=== PATIENT | female | born 1975 | race Caucasian/White ===

== ENCOUNTER 2021-10-23 01:26 | Day surgery (SDC) | payer MEDICARE, MEDICAID, SELFPAY ==
[2021-10-08 11:24] VITALS: BMI 30.5
[2021-10-23 11:17] VITALS: BP 89/51; PULSE 86; RESP 18; TEMP 36.3; O2SAT 98; BMI 29.0
[2021-10-23] MEDS: LACTATED RINGERS 1,000 ML 150 ML IV CONT (11:31)
--- NOTE | 2021-10-23 12:01 | WPDANESEPPF ---
Anes - Initial Pre Proc Eval Procedure: Operation Date: 10/23/21 13:15 Proposed Procedures p Colonoscopy - Pipe Stanton MD Date/Time: 10/23/21 12:01 Surgeon: Pipe Stanton MD Pre Op Diagnosis: positive cologuard Patient Data Age: 46 Gender: F Height: 1.7 m Weight: 84.2 kg Last Vital Signs Temp 97.3 F L 10/23/21 11:17 Pulse 86 10/23/21 11:17 Resp 18 10/23/21 11:17 BP 89/51 L 10/23/21 11:17 Pulse Ox 98 10/23/21 11:17 O2 Del Method Room Air 10/23/21 11:17 Allergies Allergy/AdvReac Type Severity Reaction Status Date / Time No Known Allergies Allergy Verified 10/23/21 11:16 Home Medications Medication Instructions Recorded Confirmed Type alprazolam 0.5 mg tablet 0.5 tablet PO HS 10/08/21 10/23/21 History alprazolam 1 mg tablet 1 tablet PO HS 10/08/21 10/23/21 History Patient hx anesthesia problems: none Family hx anesthesia problems: none Results Review: All pre-operative results and documents have been reviewed as part of the pre-operative evaluation. [facility] Social History Social History Smoking status: Never smoker Alcohol intake: never Substance use: never Substance use type: does not use Living arrangements: with family Spiritual care concerns: No Anes - Eval Final PreProcedure Day of Procedure 10/23/21 12:01 Patient weight: normal Heart: regular rate and rhythm Lungs: clear to auscultation Airway: Mallampati scale class II Neurological: alert and oriented Last oral intake: >/= 8 hours ASA classification: II Emergent: no Anesthetic plan: proceed Anesthesia type and monitoring: general GIVS and standard monitoring Results Review: All pre-operative results and documents have been reviewed as part of the pre-operative evaluation. Informed Consent: The patient's anesthetic plan and its attendant risks and benefits were discussed with the patient/family/POA. Questions were solicited and answers provided to the satisfaction of the patient/family/POA.
--- NOTE | 2021-10-23 12:38 | PM.HPGS ---
History of Present Illness History of Present Illness Consent: Risks, benefits, and alternatives have been discussed and questions answered. Patient agrees to proceed with procedure. Chief complaint: positive cologuard Narrative: Lisette Segundo is a 46 year old female here for first colonoscopy, had positive cologuard Review of Systems Constitutional: Constitutional: Denies headache(s) and Denies weakness Eyes: Eyes: Denies blurry vision ENT: Reports Normal hearing present, Denies headache(s) and Denies neck pain Cardiovascular: Cardiovascular: Denies chest pain and Denies dyspnea Respiratory: Respiratory: Denies dyspnea Gastrointestinal: Gastrointestinal: Reports no additional gastrointestinal complaints Genitourinary: Genitourinary: Denies dysuria Musculoskeletal: Musculoskeletal: Denies neck pain Integumentary/Breasts: Skin/Breast: Denies dry skin Neurologic: Reports Normal hearing present, Denies headache(s) and Denies weakness Psychiatric: Psychiatric: Denies anxiety Endocrine: Endocrine: Denies change in body appearance Hematologic/Lymphatic: Hematologic/Lymphatic: Denies easy bleeding Allergic/Immunologic: Allergic/Immunologic: Denies urticaria PMFSH Past Medical History Medical History (Updated 10/23/21 @ 12:39 by Pipe Stanton MD) Positive colorectal cancer screening using Cologuard test Social History Social History Smoking status: Never smoker Alcohol intake: never Substance use: never Substance use type: does not use Living arrangements: with family Spiritual care concerns: No Meds Home Medications and Allergies Home Medications Medication Instructions Recorded Confirmed Type alprazolam 0.5 mg tablet 0.5 tablet PO HS 10/08/21 10/23/21 History alprazolam 1 mg tablet 1 tablet PO 10/08/21 10/23/21 History Allergies Allergy/AdvReac Type Severity Reaction Status Date / Time No Known Allergies Allergy Verified 10/23/21 11:16 Vital Signs Vital Signs - 24 hr 10/23/21 11:17 Temperature 97.3 F L Pulse Rate 86 Respiratory Rate 18 Blood Pressure 89/51 L Pulse Oximetry 98 Oxygen Delivery Room Air Exam Const: General: comfortable and no acute distress HENMT: General nose exam: Normal nares present Eyes: General: appearance normal, both eyes and all related structures Neck: Neck: no JVD Resp: Auscultation: clear to auscultation bilaterally Cardio: Rate: regular rate Rhythm: regular rhythm GI: Inspection: non-distended GI Palp: Yes Soft to palpation Skin: General skin exam: normal color Neuro: General: gait normal Speech: normal speech Extrem: General: normal to inspection Psych: Mental Status: mental status grossly normal Assessment and Plan Assessment and plan (1) Positive colorectal cancer screening using Cologuard test: Code(s): R19.5 - Other fecal abnormalities Status: Acute Assessment and Plan: colonoscopy
[2021-10-23 13:07] VITALS: BP 94/56; PULSE 72; RESP 17; O2SAT 97
[2021-10-23 13:17] VITALS: BP 105/63; PULSE 67; RESP 18; O2SAT 97
[2021-10-23 13:27] VITALS: BP 97/63; PULSE 69; RESP 19; O2SAT 99
== END 2021-10-23 13:34 | disposition home or self-care (01) ==
PROVIDERS: PCP Physician Assistant; Visit Provider Internal Medicine Gastroenterology
PROC: 0DJD8ZZ Inspection of Lower Intestinal Tract, Via Natural or Artificial Opening Endoscopic (ICD-10-PCS; CPT 45378; principal; 2021-10-23 13:15)
DX: R19.5 Other fecal abnormalities (principal); K64.8 Other hemorrhoids
CPT/HCPCS: 45378; J2704; J7120

== ENCOUNTER 2024-06-01 08:36 | Outpatient (CLI) | payer OTHER, SELFPAY ==
--- NOTE | ~2024-06-01 | XR_ITS ---
Right Knee Technique: AP and lateral views were obtained. Clinical History: Pain Findings: No fracture or dislocation is seen. Osseous alignment is anatomic. Joint spaces are preserv ed without degenerative or erosive change. Soft tissues are unremarkable. No joint effusion is seen. Impression: Unremarkable right knee radiographs. Reviewed, dictated and finalized at [facility]. TRONIC SCALE ASSEMBLER AND TESTER Impression: Unremarkable right knee radiographs.
--- NOTE | ~2024-06-01 | XR_ITS ---
AP view of the pelvis and AP and lateral views of the bilateral hips Clinical history: Pain Findings: No acute fracture or dislocation is seen. Osseous alignment is anatomic. Bilateral hip and SI joint spaces are preserved. Soft tissues are unremarkable. Impression: No significant abnormality is seen. Reviewed, dictated and finalized at [facility]. TION SAW OPERATOR Impression: No significant abnormality is seen.
--- NOTE | ~2024-06-01 | XR_ITS ---
Left Knee Technique: AP and lateral views were obtained. Clinical History: Pain Findings: No fracture or dislocation is seen. Osseous alignment is anatomic. Joint spaces are preserv ed without degenerative or erosive change. Soft tissues are unremarkable. No joint effusion is seen. Impression: Unremarkable left knee radiographs. Reviewed, dictated and finalized at [facility]. VACUUM TESTER Impression: Unremarkable left knee radiographs.
--- OUTSIDE RECORDS SUMMARY | 2024-06-01 09:00 | XMS_ITS | Clinical Summary ---
Author Organization [facility] Address [address] [place] [address] Care Team Providers Care Contract Driver Name Role Phone Valorie Hancock Primary Care Provider [phone] Nohemy Brambila MD Unavailable [phone] Allergies No known active allergies Medications cephalexin (KEFLEX) 500 mg capsuleIndication s:Foot pain, left Take 1 capsule (500 mg total) by mouth 3 (three) times a day 21 capsule 4 Active diaper,brief,adul t,disposable miscIndications:K aspen's syndrome,Urinary incontinence, unspecified type,Incontinence of feces, unspecified fecal incontinence type 1 each every 4 (four) hours 120 each 11 4 Active ALPRAZolam (XANAX) 1 mg tablet TAKE 1 AND 1/2 TABLETS BY MOUTH AT BEDTIME 45 tablet 1 4 Active Active Problems Problem Noted Date Diagnosed Date Foot pain, left 01/25/2024 Assessment & Plan (02/01/2024 9:11 PM CDT): They will continue with keflex 500mg tid x 7 days. Will repeat labs today. Notes in chart indicate podiatry was trying to reach them today - they will be given the number to call for follow up. We discussed if they are unable to be evaluated in the next week that she needs to be seen here. We discussed continued monitoring and trying to keep her in the wheelchair/elevating it. We discussed mri results with potential for fracture if not treated but also for worsening infection perhaps needing iv antibiotics pending results/response to keflex. They were advised to report to the er with any new/worsening symptoms. Assessment & Plan (01/25/2024 6:56 PM CDT): Will assess further on imaging, labs. Will assess wbc, crp, esr to exclude infection. Will start on keflex. Advised reporting to the er with new/worsening symptoms. 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 Incontinence of feces 08/11/2022 Assessment & Plan (08/11/2022 12:36 PM CDT): Will send in prescription for new depends, size medium. Varicose veins of right lower extremity 08/12/19 Assessment & Plan (07/10/2023 8:27 PM CDT): Encouraged continued lower sodium diet. Advised elevation of legs when possible. Discussed referral for vascular surgeon - Pat wants to obtain lab results first, then will discuss further. Assessment & Plan (08/11/2022 12:37 PM CDT): Advised had hose 8 hours per day. Discussed further evaluation with CHAKA of legs, will attempt to arrange this at [facility]. Diarrhea 09/12/2021 Assessment & Plan (10/14/2021 8:18 PM CDT): Symptoms improved We reviewed recent stool culture results She has appt pending with gi for cscope that they will keep Assessment & Plan (09/12/2021 5:57 PM CDT): Will evaluate further with labs and imaging, will notify patient/Pat of results as they become available They have gi appt pending that they will keep Breast swelling 07/23/2021 Assessment & Plan (02/10/2022 1:50 PM MOLDER OFFBEARER): Advised mammogram as planned. Discussed follow up with jet inspector if symptoms continue. Assessment & Plan (07/23/2021 3:37 PM CDT): Will evaluate further with imaging R breast, will notify caregivers of results as available Advised reporting to office if pt develops a fever, redness, or symptoms of pain Family history of breast cancer 07/23/2021 Hypertrophy of breast 07/23/2021 Assessment & Plan (07/23/2021 3:37 PM CDT): Will evaluate further with imaging R breast, will notify caregivers of results as available Advised reporting to office if pt develops a fever, redness, or symptoms of pain BMI 28.0-28.9,adult 01/10/2021 Assessment & Plan (08/11/2022 12:37 PM CDT): Encouraged Pat to continue to work on a heart healthy diet. Assessment & Plan (01/10/2021 11:11 AM CDT): Weight/BMI is in healthy range. Continue healthy lifestyle to maintain. Annual physical exam 01/10/2021 Assessment & Plan (07/10/2023 8:26 PM CDT): Fasting labs entered, will notify patient of results as available. Appt pending for mammogram. Assessment & Plan (02/10/2022 1:51 PM MOLDER OFFBEARER): Fasting labs entered, will notify patient of results as available Flu vaccine today cscope up to date Mental and behavioral proble ms with communication (including speech) 09/25/2020 Overview (09/25/2020): Added automatically from request for surgery [id number] Abnormal uterine bleeding 09/25/2020 Overview (09/25/2020): Added automatically from request for surgery [id number] Urinary incontinence 07/12/2020 Assessment & Plan (08/11/2022 12:36 PM CDT): Will send in prescription for new depends, size medium. 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 Maria to refill the same at this time. Assessment & Plan (08/11/2022 12:36 PM CDT): Stable on p.r.n. Xanax. Will ask Dr. Maria to co-sign this order today. Assessment & Plan (02/10/2022 1:51 PM MOLDER OFFBEARER): Stable on xanax - discussed with Dr. Groves, who will send in prescription refill. Assessment & Plan (01/10/2021 1:05 PM CDT): Stable, continue with xanax. Encouraged Pat to continue with daily outings and attempts at socializing with family and friends when appropriate. Assessment & Plan (07/04/2020 3:58 PM CDT): Will continue with prn xanax Resolved Problems Problem Noted Date Diagnosed Date Resolved Date Needs flu shot 01/10/2021 10/14/2021 Colon cancer screening 01/10/202110/14 Obesity (BMI 30-39.9) 07/04/20202020 Assessment & Plan (07/04/2020 2:46 PM CDT): Weight/BMI is in healthy range. Continue healthy lifestyle to maintain. Obesity is unchanged. Discussed the patient's BMI. The BMI is above average. BMI management plan is completed. BMI Follow-up includes: nutrition counseling, exercise counseling and education provided. BMI 30.0-30.9,adult 07/04/2020 01/11/20 Assessment & Plan (07/04/2020 2:46 PM CDT): Obesity is unchanged. Discussed the patient's BMI. The BMI is above average. BMI management plan is completed. BMI Follow-up includes: nutrition counseling, exercise counseling and education provided. Encounter to establish care 07/04/2020 07/15/2021 Encounter for screening for malignant neoplasm of breast 07/04/2020 10/14/2021 Assessment & Plan (07/04/2020 3:59 PM CDT): Attempted to arrange breast US, insurance requiring waiver to be signed. This was printed and handed to Pat - asked her to call imaging scheduling and discuss scheduling US bilateral breast as she cannot tolerate mammogram. She will let us know if needing our assistance. Other fatigue 07/04/2020 10/14/2021 Immunizations Immunization Administration Dates Next Due Influenza, Quadrivalent, Spl it, Preservative Free, Intramuscular 02/10/2022,01/10/2021 Influenza, Trivalent, IM (MDV) 04/04/2014 Influenza, Trivalent, Preser vative Free, Intramuscular 01/25/2024 Influenza, Unspecified 07/10/2023(Deferr ed: Patient Refused),01/04/2023(Deferred: Patient Refused),01/04/2022(Deferred: Patient Refused),01/05/2020 Pfizer SARS-CoV-2 Monovalent Vaccination (12+ Yrs) PURPLE 07/27/2020,06/28/2020 Tdap 08/11/2022 Surgical History Surgery Date Site/Laterality Comments WISDOM TOOTH EXTRACTION MULTIPLE TOOTH EXTRACTIONS ALL TEETH HAVE BEEN REMOVED Medical History Medical History Date Comments Autistic disorder Mentally challenged Non-verbal learning disorder Autism 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 ERBAL SINCE -DELOPMENTALLY LEVEL OF 18 MONTH OLD Dysmenorrhea Family History Medical History Relation Name Comments Diabetes Father Heart disease Father Diabetes Maternal Grandfather Diabetes Maternal Grandmother Cancer Mother Diabetes Mother Heart disease Mother Diabetes Paternal Grandfather Breast cancer Paternal Grandmother Diabetes Paternal Grandmother Ovarian cancer Neg Hx Relation Name Status Comments Father Alive Maternal Grandfather Maternal Grandmother Mother Paternal Grandfather Paternal Grandmother Social History Tobacco Use Types Packs/Day Years Used Date Smoking Tobacco: Never Smokeless Tobacco: Never Tobacco Cessation:Counseling Given: Not Answered [facility] Utilities Answer Date Recorded In the past 12 months has th e electric, gas, oil, or water [employer] threatened to shut off services in your home? No 02/01/2024 Social Connection and Isolat ion Panel [NHANES] Answer Date Recorded In a typical week, how many times do you talk on the phone with family, friends, or neighbors? More than three times a week 02/01/2024 How often do you get togethe r with friends or relatives? More than three times a week 02/01/2024 How often do you attend chur ch or scientologist services? Never 02/01/2024 Do you belong to any clubs o r organizations such as bahai groups, unions, fraternal or athletic groups, or school groups? No 02/01/2024 How often do you attend meet ings of the clubs or organizations you belong to? Never 02/01/2024 Are you , , di vorced, , never , or living with a partner? Never 02/01/2024 AUDIT-C Answer Date Recorded Q1: How often do you have a drink containing alc ohol? Never 10/14/2021 Average Number of Drinks Not on file 022 Frequency of Binge Drinking Not on file 10/04 PHQ-2 Answer Date Recorded PHQ-2 Total Score (If total score is 3 or more points, staff should administer the PHQ-9) 0 02/01/2024 Hunger Vital Sign Answer Date Recorded Within the past 12 months, y ou worried that your food would run out before you got the money to buy more. Never true 02/01/20 24 Within the past 12 months, t he food you bought just didn't last and you didn't have money to get more. Never true 02/01/2024 PRAPARE - Transportation Answer Date Re corded In the past 12 months, has l ack of transportation kept you from medical appointments or from getting medications? No 01/05 In the past 12 months, has l ack of transportation kept you from meetings, work, or from getting things needed for daily living? No 02/01/2024 Housing Stability Vital Sign Answer Abhijit e Recorded In the last 12 months, was t here a time when you were not able to pay the mortgage or rent on time? No 02/01/2024 Number of Times Moved in the Last Year Not on fi le 02/01/2024 At any time in the past 12 m [facility], were you homeless or living in a jail (including now)? No 02/01/2024 Comments No Sex and Gender Information Value Date Recorded Sex Assigned at Not on file Legal Sex Female 9:44 PM MOLDER OFFBEARER Gender Identity Not on file Sexual Orientation Not on file Obstetrics History Para Term AB IAB SAB Ectopic Multiple Livin g Live Births 0 0 0 0 0 0 0 0 0 0 0 Last Filed Vital Signs Vital Sign Reading Time Taken Comments Blood Pressure 122/60 02/01/2024 3:17 PM CDT Pulse 67 02/01/2024 3:17 PM CDT Temperature 36.4 C (97.5 F) 01/10/2021 11:08 AM CDT Respiratory Rate 16 08/11/2022 10:28 AM CDT Oxygen Saturation 100% 02/01/2024 3:17 PM CDT Inhaled Oxygen Concentration - - Weight 82.6 kg (182 lb) 01/25/2024 3:29 PM CDT Height 170.2 cm (5' 7 ) 02/01/2024 3:17 PM CDT Body Mass Index 28.51 01/25/2024 3:29 PM CDT Plan of Treatment Health Maintenance Due Date Last Done Comments Breast Cancer Screening-Mammogram 1975 Hepatitis C Screening 1975 Hepatitis B Screening 09/20/1993 Cervical Cancer Screening 10/24/2021 10/24/2020 Covid-19 Vaccine ( season) 2023 07/27/2020, 06/28/2020 Regular Well Visit/Exam 18-64 07/09/2024 07/10/2023, 02/10/2022, 09/24/2020 Depression Screening 01/31/2025 02/01/2024, 01/25/2024, 07/10/2023, Additional history exists Colon Cancer Screening-Colonoscopy 10/24/2031 10/23/2021, 10/23/2021 DTaP/Tdap/Td Vaccine (2 - Td or Tdap) 08/11/2032 08/11/2022 Influenza Vaccine Completed 01/25/2024, , 01/10/2021, Additional history exists Pneumococcal vaccine <65 Aged Out No longer eligible based on patient's age to complete this topic Procedures Procedure Name Priority Date/Time Associated Diagnosis Comments HM COLONOSCOPY Routine 10/23/2021 THINPREP PAP WITH HPV Routine 10/24/2020 9:39 AM CDT from Last 3 Months or Most Recently Relevant to Health Maintenance Results * HM COLONOSCOPY (10/23/2021) Pipe Caro MD HEALTH MAINTENANCE Final Result * ThinPrep Pap with HPV (10/24/2020 9:39 AM CDT) Pap test 10/24/2020 9:39 AM CDT 10/24/2020 9:39 AM CDT Narrative 10/26/2020 11:44 AM CDT [facility] Department of Pathology [address] [place] [id number] Final Report with Addendum Patient Name: LISETTE SEGUNDO Address: [address] [place] [address] Gender: F : 1975 (Age: 45) Service: Surgery Location: [facility] #: [id number] Patient Type: [facility] OUTPATIENT Taken: 10/24/2020 Received: 10/24/2020 Accessioned:: 10/25/2020 Reported: 10/26/2020 Physician(s): Nohemy [facility] Diagnosis: Source of Specimen: Imaged Thinprep Pap Test plus HPV - Custom Protection Officer Cytologic Material Specimen Adequacy: - Satisfactory for evaluation; endocervical/transformation zone component present General Category: - Negative for intraepithelial lesion or malignancy JOSUÉ Pandey(ASCP) Report Electronically Reviewed and Signed Out By BIENVENIDO PandeyASCP) 10/26/2020 11:44:13 Addenda: HPV Test Interpretation NEGATIVE for types 16, 18, 31, 33, 35, 39, 45, 51, 52, 56, 58, 59, 66 and 68. Test performed utilizing Gen-Probe Aptima assay. JOSUÉ Pandey(ASCP) Report Electronically Reviewed and Signed Out By BIENVENIDO PandeyASCP) 10/26/2020 10:35:22 Specimen(s) Received: A: Imaged Thinprep Pap Test plus HPV - Custom Protection Officer Cytologic Material Clinical History: Last Menstrual Period: last week The Pap test is a screening test used to aid in the detection of cervical cancer and its precursors. It should not be the sole means by which malignant and premalignant lesions are diagnosed. Both false negative and false positive results may occur. It also has poor sensitivity for the detection of endometrial lesions and should not be used to evaluate suspected endometrial abnormalities. For these reasons it is most important to obtain Pap tests at regular intervals. The performance characteristics of some immunohistochemical stains, fluorescence in-situ hybridization tests and immunophenotyping by flow cytometry cited in this report (if any) were determined by the Surgical Pathology Department at [facility] as part of an ongoing personnel quality assurance auditor program and in compliance with federally mandated regulations drawn from the Clinical Laboratory Improvement Act of 1988 (CLIA '88). Some of these tests rely on the use of analyte specific reagents and are subject to specific labeling requirements by the US Food and Drug Administration. Such diagnostic tests may only be performed in a facility that is certified by the Department of Health and Human Services as a high complexity laboratory under CLIA '88. The FDA has determined that such clearance or approval is not necessary. This test is used for clinical purposes. It should not be regarded as investigational or for research. Nevertheless, federal rules concerning the medical use of analyte specific reagents require that the following disclaimer be attached to the report: This test was developed and its performance characteristics determined by the Surgical Pathology Department [facility]. It has not been cleared or approved by the U. S. Food and Drug Administration. Nohemy Brambila MD LAB CYTOLOGY ORDERABLES Final Result from Last 3 Months or Most Recently Relevant to Health Maintenance Insurance [facility] [place] [facility] Advance Directives For more information, please contact: [phone] Documents on File Type Date Recorded Patient Cardiac Exercise Physiologist Expl anation Power of Lithograph Designer 10/24/2020 8:12 AM Care Teams Contract Driver Relationship Specialty Start Date End Date Valorie Hancock PA PCP - General Stamp Pad Maker 07/02/20 Nohemy Brambila MD [address] [place] [id number] Consulting Physician Obstetrics and Gynecology 10/24/20
--- OUTSIDE RECORDS SUMMARY | 2024-06-01 09:00 | XMS_ITS | Clinical Summary ---
Author Organization [facility] Address [address] [place] [address] Phone Care Team Providers Care Programming Manager Name Role Phone Hammad Covington MD Primary Care Provider [phone] Allergies No known active allergies Medications ALPRAZolam (XANAX) 0.5 mg tablet Take 0.5 mg by mouth late in the day. Active oxyCODONE-aceta minophen (PERCOCET) 5-325 mg tabletIndicatio ns:Dental caries extending into pulp Take 1 Tablet by mouth Post-Proc Once for 1 dose. 1 TAB PO PRN WHILE IN ASU 2 Tablet 02/01/2019 Active oxyCODONE-aceta minophen (PERCOCET) 5-325 mg tablet Take 1 Tablet by mouth every 4 hours as needed for pain. Max Daily Amount: 6 Tablets 20 Tablet 02/01/2019 4:25 PM CDT 02/01/2019 Active HYDROcodone-jerica taminophen (HYCET) 7.5-325 mg/15 mL SolutionIndicat ions:Preop testing Take 15 mL by mouth every 6 hours as needed for Pain. Max Daily Amount: 60 mL 300 mL 01/24/2020 6:46 PM CDT 01/24/2020 Active Encounters Date Type Department Care Team Description 05/24/2024 External Device Data STL ABSTRACTION Provider, Abstract 05/10/2024 External Device Data STL ABSTRACTION Provider, Abstract 05/10/2024 External Device Data ST[facility] ABSTRACTION Provider, Abstract 05/10/2024 External Device Data ST[facility] ABSTRACTION Provider, Abstract from Last 3 Months Social History Tobacco Use Types Packs/Day Years Used Date Smoking Tobacco: Never Smokeless Tobacco: Never Alcohol Use Standard Drinks/Week Comments Never 0 (1 standard drink = 0.6 oz pur e alcohol) Comments No Sex and Gender Information Value Date Recorded Sex Assigned at Not on file Legal Sex Female 9:02 AM CDT Gender Identity Not on file Sexual Orientation Not on file Last Filed Vital Signs Vital Sign Reading Time Taken Comments Blood Pressure 128/74 01/24/2020 4:55 PM CDT Pulse 71 01/24/2020 5:46 PM CDT Temperature 36.7 C (98 F) 01/24/2020 5:46 PM CDT Respiratory Rate 16 01/24/2020 4:55 PM CDT Oxygen Saturation 94% 01/24/2020 5:46 PM CDT Inhaled Oxygen Concentration - - Weight 86.6 kg (191 lb) 01/24/2020 12:08 PM CDT Height 170.2 cm (5' 7 ) 01/24/2020 12:08 PM CDT Body Mass Index 29.91 01/24/2020 12:08 PM CDT Plan of Treatment Health Maintenance Due Date Last Done Comments DTAP/TDAP/TD VACCINES (1 - Tdap) 09/20/1994 HEPATITIS B VACCINES (1 of 3 - 19+ 3-dose series) 09/20/1994 CERVICAL CANCER SCREENING 09/20/2005 BREAST CANCER SCREENING 2015 COLORECTAL SCREENING 09/20/2020 Colorectal Cancer Screening 09/20/2020 FIT-DNA Q 3 years 09/20/2020 FIT/FOBT Q 1 year 09/20/2020 Flex Sig/CT Colonography Q 5 years 09/20/2020 INFLUENZA VACCINE (#1) 2023 PNEUMOCOCCAL VACCINE 0-64 YEARS Aged Out No longer eligible based on patient's age to complete this topic Insurance MEDICARE PART A AND B MEDICAID [place] RX OPTUM RX Member Subscriber Plan / Payer (Ef fective 2020-Present) Name:Lisette Segundo Relation to Subscriber:Self Name:Lisette Segundo Payer ID:Not on file Group ID:[id number] Type:RX Commercial Address: [address] Advance Directives For more information, please contact: [phone] Documents on File Type Date Recorded Patient Soda Flaker Expl anation Advance Directive POA 02/01/2019 1:07 PM Advance Directive POA Advance Directive Living Will 02/01/2019 1:07 PM * Full Code (Latest Code Status on File) Date Activated Date Inactivated Comments 02/01/2019 12:49 PM 02/01/2019 6:59 PM Care Teams Programming Manager Relationship Specialty Start Date End Date Hammad Covington MD [address] [place] [address] PCP - General Family Practice 02/01/19
--- OUTSIDE RECORDS SUMMARY | 2024-06-01 09:00 | XMS_ITS | Referral Summary ---
Author Organization [facility] Office Center Address [address] [place] [address] Care Team Providers Care Fruit Harvester Name Role Phone Valorie Hancock Primary Care Provider [phone] Nohemy Brambila MD Unavailable [phone] Allergies No known active allergies Medications [...] legs, will attempt to arrange this at [facility]. Diarrhea 09/12/2021 Assessment & Plan (10/14/2021 8:18 [...] 07/23/2021 Assessment & Plan (02/10/2022 1:50 PM STACKING MACHINE OPERATOR): Advised mammogram as planned. Discussed follow up with link trainer maintenance man if symptoms continue. Assessment & Plan (07/23/2021 [...] mammogram. Assessment & Plan (02/10/2022 1:51 PM STACKING MACHINE OPERATOR): Fasting labs entered, will notify patient of results as available Flu vaccine today cscope up to date Mental and behavioral proble ms with communication (including speech) 09/25/2020 Overview (09/25/2020): Added automatically from request for surgery [id number] Abnormal uterine bleeding 09/25/2020 Overview (09/25/2020): Added automatically from request for surgery [id number] Urinary incontinence 07/12/2020 Assessment & Plan (08/11/2022 12:36 PM CDT): Will send in prescription for new depends, size medium. Assessment & Plan (01/10/2021 1:05 PM CDT): Will have staff fax order for depends to [facility] Insomnia 07/12/2020 Menorrhagia 07/04/2020 Irregular menses 07/04/2020 Assessment & Plan (07/04/2020 3:59 PM CDT): Will refer to link trainer maintenance man to discuss pap under sedation Severe intellectual [...] today. Assessment & Plan (02/10/2022 1:51 PM STACKING MACHINE OPERATOR): Stable on xanax - discussed with Dr. [...] Vaccination (12+ Yrs) PURPLE 07/27/2020,06/28/2020 Tdap 08/11/2022 Social History Tobacco Use Types Packs/Day Years Used Date Smoking Tobacco: Never Smokeless Tobacco: Never Tobacco Cessation:Counseling Given: Not Answered [facility] Utilities Answer Date Recorded In the past 12 months has [employer] or [employer] threatened to shut off services in your [...] often do you attend chur ch or moravian services? Never 02/01/2024 Do you belong to any clubs o r organizations such as christian groups, unions, fraternal or athletic groups, or [...] any time in the past 12 m [facility], were you homeless or living in a half-way (including now)? No 02/01/2024 Comments No Sex and Gender Information Value Date Recorded Sex Assigned at Not on file Legal Sex Female 9:44 PM STACKING MACHINE OPERATOR Gender Identity Not on file Sexual Orientation [...] 01/25/2024 3:29 PM CDT Plan of Treatment Not on file Procedures Procedure Name Priority Date/Time Associated Diagnosis Comments COLONOSCOPY Routine 10/23/2021 THINPREP PAP WITH HPV Routine 10/24/2020 9:39 AM CDT from Last 3 Months or Most Recently Relevant to Health Maintenance Results * HM COLONOSCOPY (10/23/2021) Pipe Caro MD HEALTH MAINTENANCE Final Result * ThinPrep Pap with HPV (10/24/2020 9:39 AM CDT) Pap test 10/24/2020 9:39 AM CDT 10/24/2020 9:39 AM CDT Narrative 10/26/2020 11:44 AM CDT [facility] Department of Pathology [address] [place] [address] Final Report with Addendum Patient Name: LISETTE SEGUNDO Address: [address] [place] [address] Gender: F : 1975 (Age: 45) Service: Surgery Location: Hospital #: [id number] Patient Type: Chirstine [facility] OUTPATIENT Taken: 10/24/2020 Received: 10/24/2020 Accessioned:: 10/25/2020 Reported: 10/26/2020 Physician(s): Nohemy [facility] Diagnosis: Source of Specimen: Imaged Thinprep Pap Test plus HPV - Underliner Cytologic Material Specimen Adequacy: - Satisfactory for evaluation; endocervical/transformation zone component present General Category: - Negative for intraepithelial lesion or malignancy JOSUÉ Pandey(ASCP) Report Electronically Reviewed and Signed Out By JOSUÉ Pandey(ASCP) 10/26/2020 11:44:13 Addenda: HPV Test Interpretation NEGATIVE for types 16, 18, 31, 33, 35, 39, 45, 51, 52, 56, 58, 59, 66 and 68. Test performed utilizing Gen-Probe Aptima assay. JOSUÉ Pandey(ASCP) Report Electronically Reviewed and Signed Out By JOSUÉ Pandey(ASCP) 10/26/2020 10:35:22 Specimen(s) Received: A: Imaged Thinprep Pap Test plus HPV - Underliner Cytologic Material Clinical History: Last Menstrual Period: [...] determined by the Surgical Pathology Department at [facility] as part of an ongoing water quality analyst program and in compliance with federally mandated [...] characteristics determined by the Surgical Pathology Department [facility]. It has not been cleared or approved by the U. S. Food and Drug Administration. Nohemy Brambila MD LAB CYTOLOGY ORDERABLES Final Result from Last 3 Months or Most Recently Relevant to Health Maintenance Insurance [facility] [place] [facility] [place] [employer] [facility] [facility] Advance Directives For more information, please contact: [phone] Documents on File Type Date Recorded Patient Radar Operator Expl anation Power of Cabin Furnishings Installer 10/24/2020 8:12 AM Care Teams Fruit Harvester Relationship Specialty Start Date End Date Valorie Hancock PA PCP - General Insole Tack Puller Hand 07/02/20 Nohemy Brambila MD [address] [place] [id number] Consulting Physician Obstetrics and Gynecology 10/24/20
--- OUTSIDE RECORDS SUMMARY | 2024-06-01 09:00 | XMS_ITS | Data Portability ---
Author Organization [employer] [facility], Main Office Address [address] [place] [address] Care Team Providers Care Floor Worker Name Role Phone SHANTANU GUERRA Primary Care Provider Assessment Encounter Date Assessment Date Assessment LastModified by Organization Details LastModified Time 02/08/2024 02/08/2024 This note is dictated and transcribed by [employer]. Appliance Mechanic variances may occur. Despite proofreading, typographical errors may occur. Occasional wrong-word or 'ivbim-k-ugkq' substitutions may have occurred due to the inherent limitations of voice recording. Read the chart carefully and recognize, using context, where substitutions have occurred. [email or web address] Not available 02/08/2024 15:27:24 02/16/2024 02/16/2024 This note is dictated and transcribed by [employer]. Appliance Mechanic variances may occur. Despite proofreading, typographical errors may occur. Occasional wrong-word or 'uvigz-m-fruv' substitutions may have occurred due to the inherent limitations of voice recording. Read the chart carefully and recognize, using context, where substitutions have occurred. [email or web address] Not available 02/16/2024 15:46:03 Plan of Treatment Reminders Order Date Submit Date Provider Last Modified By Organization Details Last Modified Time Details Appointments None recorded. Lab None recorded. Referral None recorded. Procedures None recorded. Surgeries None recorded. Imaging XR, foot, 3 or more view pritesh Pena [facility] Podiatry Jeffery Melendez, [facility], [place], [address], 15:59:54 Medication Orders Medrol (Santiago) 4 mg tablets in a dose pack [facility] [id number] In [facility], [address], [place], [address], 15:41:23 Patient TargetsNo targets recorded. Patient InstructionsNo instructions recorded. Reason for Referral None Reported. Results Created Date Observation Date Name Description Value Unit Range Abnormal Flag Note LastModifiedBy Organization Detail LastModifiedTime 02/08/20 24 XR, foot, 3 or more view No observ ation record ed. kimberly [facility] Podiatry Jeffery Melendez [address], [place], [address], 02/08/2024 15:59:54 Result Notes None recorded. Problems Name Problem SNOMED Code Status Onset Date Resolution Date Notes Provider Name and Address Organization Details Recorded Time Gout 72113597 Active 2023 Noe Andrews DPM [address], [address], [place], [address], [employer] 15:27:13 Bunion 813013173 Active 2023 Noe Andrews DPM [address], [address], [place], [address], [employer] 4 15:27:18 Pain in left foot 174086022568926 Active 2023 Noe Andrews DPM [address], [address], [place], [address], [employer] 15:27:22 Problem Notes None recorded. Procedures Surgical History None recorded. Imaging Results Imaging Date Name Status LastModified by Organiz ation Details LastModified Time 02/08/2024 XR, foot, 3 or more view completed kimberly [facility] Podiatry Jeffery Melendez [address], [place], [address], 02/08/2024 15:59:54 Procedure Notes None recorded. Medical Equipment None Reported. Medications Name Sig Start Date Stop Date Status Note LastModified by Organization Details LastModified Time alprazolam 1 mg tablet TAKE 1 AND 1/2 TABLETS BY MOUTH AT BEDTIME active Not Available Not Available No t Available cephalexin 500 mg capsule TAKE 1 CAPSULE BY MOUTH THREE TIMES A DAY active Not Available Not Available No t Available methylpredniso lone 4 mg tablets in a dose pack TAKE 6 TABLETS ON DAY 1 DIRECTED ON PACKAGE AND DECREASE BY 1 TAB EACH DAY FOR A TOTAL OF 6 DAYS active Not Available Not Available No t Available Vitals Date Recorded Body height Body mass index (BMI) Body weight Provider Name and Address Organization Details Last Updated DateTime 02/08/2024 182.88 cm 25.2 kg/m2 10937.18 g Cass Hilliard [employer] [facility] 02/08/2024 15:03:50 Date Recorded Body height Body mass index (BMI) Body weight Heart rate Respiratory rate Oxygen saturation Oxygen saturation in Arterial blood by Pulse oximetry Provider Name and Address Organization Details Last Updated DateTime 182.88 cm 25.2 kg/m2 65112.1 8 g 89 /min 14 /min 97 % 97 % Kay Silva [facility] 15:38:44 Social History Question Answer Notes LastModified by Organizat ion Details LastModified Time Tobacco Smoking Status Never Smoker Cass riley [facility] 02/08/2024 15:04:51 What Is Your Level Of Alcohol Consumption? None [email or web address] Information not available 02/08/2024 Sex: Unknown Functional Status None recorded. Mental Status None recorded. Family History Relationship Description Onset Age of this Age Resolved Age Notes LastModified by Organization Details LastModified Time Unspecified Relation Diabetes mellitus [email or web address] Not available 2023 15:04:11 Unspecified Relation Arthritis [email or web address] Not available 024 15:04:17 Unspecified Relation Hypertensive disorder [email or web address] Not available 2023 15:04:26 Unspecified Relation Heart disease [email or web address] Not available 2023 15:04:35 Unspecified Relation Family history of malignant neoplasm [email or web address] Not available 2023 15:04:44 Medical History No medical history recorded. Gynecological HistoryNo gynecological history recorded. Obstetrics History GPAL:G 0 P 0 0 0 0 Past Encounters Encounter ID Performer Location Encounter Start Date Encounter Closed Date Diagnosis/Indication Diagnosis SNOMED-CT Code Diagnosis ICD10 Code Diagnosis Note [id number] Noe Andrews DPM [facility] [place] [address] [place] [address] 02/08/2024 14:27:09 03/31/2024 14:59:23 Gout 14764440 M10.9 left first MTPJdiscus sed different food groups to stay away from which could cause goutrecomm ended fluids- water Bunion 656039655 M21.61 9 left footcontin ue conservati ve offloading wide shoe gear Pain in left foot 569956 6248 38621 M79.672 x-rays reviewed with caretakers [id number] Noe Andrews DPM [facility] [place] [address] [facility], [address] [place] [address] 02/16/2024 14:58:12 04/01/2024 12:07:44 Pain in left foot 3652929675 [address]1972 M79.672 x-rays reviewed with caretakers resolvedCo ntinue supportive shoe gearFollow -up as needed Gout 35557570 M10.9 left first MTPJdiscus sed different food groups to stay away from which could cause goutrecomm ended fluids- waterResol brittaney Health Concerns Section Related Observation LastModified by Organization Detai ls LastModified Time None Recorded Concern Status LastModified by Organization Details LastModified Time None Recorded Advance Directives Directive None Recorded Payers Encounter Date Sequence Insurance Name Policy Number Policy Schwarz Covered Member ID Schwarz Member ID Guarantor Name 02/08/2024 1 [employer] PREMIER PLAN - DUAL (MEDICARE - MEDICAID REPLACEMENT HMO) Lisette Segundo [id number] Lisette Segundo 02/16/2024 1 [employer]ER PLAN - DUAL (MEDICARE - MEDICAID REPLACEMENT HMO) Lisette Segundo [id number] Lisette Segundo Notes Date Note Type Note Provider Name and Address Organization Details Recorded Time 02/08/2024 text/html . Patient is a 48-year-old female who presents the office with to supervising individuals from the living facility to which the patient lives in. Patient was brought for evaluation secondary to swelling redness and pain of the 1st MPJ of the left foot. Patient was previously placed on oral antibiotics to which they state she has had resolution of the redness and still has some swelling. Patient is non audible and does not speak. Patient has pain with range of motion of the 1st MPJ. Patient had x-rays which were negative for any acute pathologic fractures. Noe Andrews DPM [address] [facility] [place] [address], [place], [address], [employer] 02/08/2024 16:03:29 02/16/2024 text/html . Patient is a 48-year-old female who returns the office for follow-up on gout and left foot pain. Patient has been on Medrol Dosepak her pain has resolved she is walking better and not in pain. Patient caretakers deny any other complaints for the patient. Noe Andrews DPM [address], [place] [address], [place], [address], [employer] 02/16/2024 15:46:36 OBGyn Episode No OBEpisode recorded.
--- OUTSIDE RECORDS SUMMARY | 2024-06-01 09:00 | XMS_ITS | Clinical Summary ---
Author Organization [facility] Address [facility] [place] [address] Care Team Providers Care Store Protection Specialist Name Role Phone Unavailable Primary Care Provider Unavailabl e Social History Tobacco Use Types Packs/Day Years Used Date Smoking Tobacco: Never Assessed Comments Unknown Sex and Gender Information Value Date Recorded Sex Assigned at Not on file Legal Sex Female 7:03 PM CDT Gender Identity Not on file Sexual Orientation Not on file Plan of Treatment Health Maintenance Due Date Last Done Comments Cervical Cancer Screening Pa p Smear (Age 30 to 64) Every 3 Years 1975 Colorectal Cancer Screening Colonoscopy (10 Years) 1975 Annual Physical 09/20/1978 Hepatitis C 09/20/1993 DTaP, Tdap and Td Vaccines ( 1 - Tdap) 09/20/1994 Hepatitis B Vaccines (1 of 3 - 19+ 3-dose series) 09/20/1994 Cervical Cancer Screening Pa p with HPV Testing (Age 30 to 64) Every 5 Years 09/20/2005 Cervical Cancer Screening with HPV 09/20/2005 Mammogram Screening 2015 COVID-19 Vaccine (2023-2 5 season) 2023 Influenza Adult (#1) 2024 Meningococcal B Vaccine Aged Out No l onger eligible based on patient's age to complete this topic Meningococcal Vaccine Aged Out No cam arnulfo eligible based on patient's age to complete this topic Pneumococcal Vaccine: Pediat rics (0 to 5 Years) and At-Risk Patients (6 to 64 Years) Aged Out No longer eligible b ased on patient's age to complete this topic RSV Immunizations Under 20 Months Aged Out No longer eligible based on patient's age to complete this topic
[2024-06-01 09:15] LABS: Basophils Percent Auto 0.6 % (0.2-1.2); Eosinophils Absolute Auto 0.2 K/mm3 (0-0.3); Eosinophils Percent Auto 2.4 % (0-4.4); Hematocrit 36.1 % (37.0-47.0); Hemoglobin 10.9 g/dL (12.0-15.0); Immature Granulocyte Absolute 0.06 K/mm3 (0.00-0.031); Immature Granulocyte Percent A 0.9 % (0-0.5); Lymphocytes Absolute Auto 2.03 K/mm3 (0.9-3.2); Lymphocytes Percent Auto 29.1 % (18.3-44.2); Mean Corpuscular HGB Conc 30.2 g/dl (32-36); Mean Corpuscular Volume 76.2 fl (80-100); Mean Platelet Volume 8.8 fl (7.4-10.4); Monocytes Absolute Auto 0.9 K/mm3 (0.1-0.6); Monocytes Percent Auto 12.2 % (2.6-8.5); Neutrophils Absolute Auto 3.8 K/mm3 (1.3-6.7); Neutrophils Percent Auto 54.8 % (45.5-73.1); Platelet Count Result 354 k/mm3 (150-375); Red Blood Count 4.74 M/mm3 (4.2-5.4)
[2024-06-01 09:28] LABS: Alanine Aminotransferase 16 U/L (6-35); Albumin Level 3.8 g/dL (3.5-5.1); Alkaline Phosphatase 83 U/L (38-126); Anion Gap 7 mmol/L (4-12); Aspartate Amino Transferase 21 U/L (14-36); Bilirubin,Total 0.5 mg/dL (0.2-1.3); Blood Urea Nitrogen 11 mg/dL (7-17); Calcium 9.2 mg/dL (8.4-10.2); Carbon Dioxide 25 mmol/L (22-30); Chloride 106 mmol/L (98-107); Cholesterol 166 mg/dL (0-200); Estimated Glomerular Filt Rate > 60; Glucose 88 mg/dL (65-110); HDL Direct 43 mg/dL; Potassium 3.9 mmol/L (3.4-5.0); Sodium 138 mmol/L (137-145); Triglycerides 121 mg/dL (<150)
[2024-06-01 09:39] LABS: LDL Cholesterol Direct 83 mg/dL
[2024-06-01 09:47] LABS: Vitamin D 25 Hydroxy 20.8 ng/mL
== END 2024-06-01 08:37 | disposition home or self-care (01) ==
LOC: ANHLAB 08:39
PROVIDERS: PCP Emergency Medicine; Visit Provider Emergency Medicine
DX: M25.561 Pain in right knee (principal); M25.562 Pain in left knee; M25.551 Pain in right hip; M25.552 Pain in left hip; E78.5 Hyperlipidemia, unspecified; E03.9 Hypothyroidism, unspecified; E55.9 Vitamin D deficiency, unspecified; I10 Essential (primary) hypertension
CPT/HCPCS: 36415; 73521; 73560; 80053; 80061; 82306; 84443; 85025

== ENCOUNTER 2024-09-29 09:41 | Outpatient (CLI) | payer MEDICAID, SELFPAY ==
--- NOTE | ~2024-09-29 | XR_ITS ---
EXAM/ PROCEDURE: XR hand LT 2V - 09/29/2024 10:00 CDT HISTORY: 49 years old Female with M79.642 - Pain in left hand COMPARISON: None available TECHNIQUE: Three view(s) FINDINGS/ IMPRESSION: There are no fractures or dislocations.Joint space narrowing, subchondral sclerosis, subchondral cyst formation and osteophyte formation, compatible with gmiy-tg-[id number] osteoarthritis. Reviewed, dictated and finalized at location A.
== END 2024-09-29 09:42 | disposition home or self-care (01) ==
PROVIDERS: PCP Emergency Medicine; Visit Provider Emergency Medicine
DX: M79.642 Pain in left hand (principal)
CPT/HCPCS: 73120

== ENCOUNTER 2025-01-18 10:56 | Outpatient (CLI) | payer OTHER, MEDICAID, SELFPAY ==
[2025-01-18 11:55] LABS: Alanine Aminotransferase 14 U/L (6-35); Albumin Level 3.9 g/dL (3.5-5.1); Alkaline Phosphatase 95 U/L (38-126); Anion Gap 7 mmol/L (4-12); Aspartate Amino Transferase 26 U/L (14-36); Bilirubin,Total 0.3 mg/dL (0.2-1.3); Blood Urea Nitrogen 8 mg/dL (7-17); Calcium 9.3 mg/dL (8.4-10.2); Carbon Dioxide 26 mmol/L (22-30); Chloride 105 mmol/L (98-107); Cholesterol 155 mg/dL (0-200); Estimated Glomerular Filt Rate > 60; Glucose 96 mg/dL (65-110); HDL Direct 43 mg/dL; Potassium 3.7 mmol/L (3.4-5.0); Sodium 138 mmol/L (137-145); Total Protein 7.5 g/dL (6.3-8.2); Triglycerides 99 mg/dL (<150)
--- OUTSIDE RECORDS SUMMARY | 2025-01-18 12:59 | XMS_ITS | Clinical Summary ---
Author Organization [facility] Address [address] [facility] [place] [address] Phone Care Team Providers Care Sign Writer Hand Name Role Phone Hammad Covington MD Primary Care Provider [phone] Allergies No known active allergies Medications ALPRAZolam [...] Encounters Date Type Department Care Team Description 12/20/2024 External Device Data STL ABSTRACTION Provider, Abstract 11/08/2024 External Device Data STL ABSTRACTION Provider, Abstract 10/19/2024 External Device Data STL ABSTRACTION Provider, Abstract 10/18/2024 External Device Data STL ABSTRACTION Provider, Abstract [...] 12:08 PM CDT Height 170.2 cm (5' 7) 01/24/2020 12:08 PM CDT Body Mass Index 29.91 01/24/2020 12:08 PM CDT Plan of Treatment Health Maintenance Due Date Last Done Comments DTAP/TDAP/TD VACCINES (1 - Tdap) 09/20/1994 HEPATITIS B VACCINES (1 of 3 - 19+ 3-dose series) 09/04 HPV/Cotest (21-29) 09/20/1996 CERVICAL CANCER SCREENING 09/20/2005 HPV/Cotest (30-65) 09/20/2005 PAP SMEAR 09/20/2005 BREAST CANCER SCREENING 2015 COLORECTAL SCREENING 09/20/2020 Colorectal Cancer Screening 09/20/2020 FIT-DNA Q 3 years 09/20/2020 FIT/FOBT Q 1 year 09/20/2020 Flex Sig/CT Colonography Q 5 years 09/20/2020 INFLUENZA VACCINE (#1) 2024 Insurance MEDICARE PART A AND B MEDICAID [place] RX [employer] RX Member Subscriber Plan / Payer (Ef fective 2020-Present) Name:Lisette Segundo Relation to Subscriber:Self Name:Lisette Segundo Payer ID:Not on file Group ID:[id number] Type:RX Commercial Address: [address] Advance Directives For more information, please contact: [phone] Documents on File Type Date Recorded Patient Continuous Miner Operator Helper Expl anation Advance Directive POA 02/01/2019 1:07 PM Advance Directive POA Advance Directive Living Will 02/01/2019 1:07 PM * Full Code (Latest Code Status on File) Date Activated Date Inactivated Comments 02/01/2019 12:49 PM 02/01/2019 6:59 PM Care Teams Sign Writer Hand Relationship Specialty Start Date End Date Hammad Covington MD [address] [place] [id number] PCP - General Family Practice 02/01/19
--- OUTSIDE RECORDS SUMMARY | 2025-01-18 12:59 | XMS_ITS | Clinical Summary ---
Author Organization [facility] Address [address] [place] [address] Care Team Providers Care Balloon Pilot Name Role Phone Valorie Hancock Primary Care Provider [phone] Nohemy Brambila MD Unavailable [phone] Allergies No known active allergies Medications cephalexin [...] legs, will attempt to arrange this at [facility]. Diarrhea 09/12/2021 Assessment & Plan (10/14/2021 8:18 [...] 07/23/2021 Assessment & Plan (02/10/2022 1:50 PM CLASSIFICATION COUNSELOR): Advised mammogram as planned. Discussed follow up with steam fitter helper if symptoms continue. Assessment & Plan (07/23/2021 [...] mammogram. 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 Maria to refill the same at this time. Assessment & Plan (08/11/2022 12:36 PM CDT): Laurie on p.r.n. Xanax. Will ask Dr. Maria to co-sign this order today. Assessment & Plan (02/10/2022 1:51 PM CLASSIFICATION COUNSELOR): Stable on xanax - discussed with Dr. [...] Tobacco: Never Tobacco Cessation:Counseling Given: Not Answered [facility] Utilities Answer Date Recorded In the past 12 months has th e electric, gas, oil, or water [employer] threatened to shut off services in your home? No 02/01/2024 Social Connection and Isolation Panel Answer Date Recorded In a typical week, how many times do you talk on the phone with family, friends, or neighbors? More than three times a week 02/01/2024 How often do you get togethe r with friends or relatives? More than three times a week 02/01/2024 How often do you attend chur ch or muslim services? Never 02/01/2024 Do you belong to any clubs o r organizations such as adventist groups, unions, fraternal or athletic groups, or [...] any time in the past 12 m [facility], were you homeless or living in a usp (including now)? No 02/01/2024 Comments No Sex and Gender Information Value Date Recorded Sex Assigned at Not on file Legal Sex Female 9:44 PM CLASSIFICATION COUNSELOR Gender Identity Not on file Sexual Orientation [...] 3:29 PM CDT Height 170.2 cm (5' 7) 02/01/2024 3:17 PM CDT Body Mass Index 28.51 01/25/2024 3:29 PM CDT Plan of Treatment Health Maintenance Due Date Last Done Comments Breast Cancer Screening-Mammogram 1975 Hepatitis C Screening 1975 Hepatitis B Screening 09/20/1993 Cervical Cancer Screening 10/24/2021 10/24/2020 Regular Well Visit/Exam 18-64 07/09/2024 07/10/2023, 02/10/2022, 09/24/2020 Covid-19 Vaccine ( season) 2024 07/27/2020, 06/28/2020 Influenza Vaccine (#1) 2024 4, 02/10/2022, 01/10/2021, Additional history exists Depression Screening 01/31/2025 02/01/2024, 01/25/2024, 07/10/2023, Additional history exists Colon Cancer Screening-Colonoscopy 10/24/2031 10/23/2021, 10/23/2021 DTaP/Tdap/Td Vaccine (2 - Td or Tdap) 08/11/2032 08/11/2022 Pneumococcal vaccine <65 Aged Out No longer [...] AM CDT Narrative 10/26/2020 11:44 AM CDT [facility] Department of Pathology [address] [place] [id number] Final Report with Addendum Patient Name: LISETTE SEGUNDO Address: [address] [place] [address] Gender: F : 1975 (Age: 45) Service: Surgery Location: [facility] #: [id number] Patient Type: [facility] OUTPATIENT Taken: 10/24/2020 Received: 10/24/2020 Accessioned:: 10/25/2020 Reported: 10/26/2020 [facility]: Source of Specimen: Imaged Thinprep Pap Test plus HPV - Scrum Master Cytologic Material Specimen Adequacy: - Satisfactory for [...] Imaged Thinprep Pap Test plus HPV - Scrum Master Cytologic Material Clinical History: Last Menstrual Period: [...] determined by the Surgical Pathology Department at [facility] as part of an ongoing manufacturing quality manager program and in compliance with federally mandated [...] [facility] It has not been cleared or approved by the [place]. [place]. Food and Drug Administration. Nohemy Brambila MD LAB CYTOLOGY ORDERABLES Fin al Result from Last 3 Months or Most Recently Relevant to Health Maintenance Insurance [facility] [place] [facility] [place] [facility] Member Subscriber Plan / Payer (Ef fective 2024-Present) Name:Lisette Segundo Relation to Subscriber:Self Name:Lisette Segundo Payer ID:[id number] (NAIC) Group ID:Not on file Type:MEDICAID RISK OTHER Address: [facility] [id number] [place] [id number] Advance Directives For more information, please contact: [phone] Documents on File Type Date Recorded Patient Documentation Improvement Specialist Expl anation Power of Stone Unloader 10/24/2020 8:12 AM Care Teams Balloon Pilot Relationship Specialty Start Date End Date Valorie Hancock PA PCP - General Marriage And Family Therapist 07/02/20 Nohemy Brambila MD [address] [place] [id number] Consulting Physician Obstetrics and Gynecology 10/24/20
== END 2025-01-18 10:57 | disposition home or self-care (01) ==
LOC: ANHLAB 10:58
PROVIDERS: PCP Emergency Medicine; Visit Provider Emergency Medicine
DX: E78.5 Hyperlipidemia, unspecified (principal); E55.9 Vitamin D deficiency, unspecified
CPT/HCPCS: 36415; 80053; 80061; 82306